=== PATIENT | female | born 1995 | race Two or more races ===

== ENCOUNTER 2019-09-12 12:16 | Observation (INO) | payer BC, OTHER ==
[~2019-09-12] VITALS: Ht 160 cm; Wt 74.8 kg
[2019-09-12] MEDS ORDERED: ONDANSETRON HCL 4 MG/2 ML VIAL IM ONE (13:30)
[2019-09-12] MEDS ORDERED: LACTATED RINGER'S 1,000 ML IV ONE (13:30)
== END 2019-09-12 14:50 | disposition home or self-care (01) | DRG 833 ==
LOC: LDRP 12:16
PROVIDERS: ADMIT Obstetrics & Gynecology; ATTEND Obstetrics & Gynecology
DX: O99.89 Other specified diseases and conditions complicating pregnancy, childbirth and the puerperium (principal); E86.0 Dehydration; O21.2 Late vomiting of pregnancy; O26.892 Other specified pregnancy related conditions, second trimester; R19.7 Diarrhea, unspecified; Z3A.23 23 weeks gestation of pregnancy
CPT/HCPCS: 59025; 81002; 96360; 96372; G0378; J2405; 96365